=== PATIENT | female | born 1950 | race Caucasian/White ===

== ENCOUNTER 2018-01-31 10:09 | Emergency (ER) | payer OTHER ==
[~2018-01-31] VITALS: Ht 154.9 cm; Wt 70.3 kg
[2018-01-31] MEDS ORDERED: AVALIDE 300-121 EACH (10:43)
[2018-01-31] MEDS ORDERED: JANUMET XR 1001 EACH (10:43)
[2018-01-31] MEDS ORDERED: CIPRO500 MG PO (17:53)
== END 2018-01-31 18:04 | disposition home or self-care (01) ==
LOC: ER 10:09
DX: K57.90 Diverticulosis of intestine, part unspecified, without perforation or abscess without bleeding (principal)